=== PATIENT | female | born 1945 | race Caucasian/White ===

== ENCOUNTER 2016-08-11 13:41 | Observation (INO) | payer OTHER ==
[~2016-08-11] VITALS: Ht 152.4 cm; Wt 83.5 kg
[2016-08-11] VITALS (7 sets, daily range): BP systolic 122–153; BP diastolic 60–93; PULSE 100–115; RESP 18–22; TEMP 96.5–98.2; O2SAT 94–97
[~2016-08-11 13:41] MED LIST: ASPI325T PO; NITR-29 PO; OXYC5 PO; PRED20 PO
[2016-08-11] MEDS ORDERED: methylPREDNISolone SOD SUCC 125 MG/2 ML VIAL IVP ONE (13:45)
[2016-08-11] MEDS ORDERED: SODIUM CHLORIDE 0.9% FLUSH 10 ML FLUSH IVF PRN (13:45)
[2016-08-11] MEDS ORDERED: ASPI325T PO (13:50)
[2016-08-11] MEDS: RESP: ALBUTEROL 2.5 MG/IPRATROPIUM 0.5 MG NEB (SCH) INH ×3 (13:56→14:20)
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
[2016-08-11 14:05] LABS: BASOPHIL # 0.1 TH/MM3 (0-0.2); BASOPHIL % 0.8 % (0.0-2.0); EOSINOPHIL # 0.8 TH/MM3 (0-0.4); EOSINOPHIL % 7.3 % (0.0-4.0); LYMPH % 26.9 % (9.0-44.0); LYMPHOCYTE # 2.9 TH/MM3 (1.0-4.8); MEAN CELL VOLUME 88.4 FL (80.0-100.0); MEAN CORPUSCULAR HEMOGLOBIN 29.6 PG (27.0-34.0); MEAN CORPUSCULAR HGB CONC 33.5 % (32.0-36.0); MONO % 8.9 % (0.0-8.0); NEUT % 56.1 % (16.0-70.0); PLATELET COUNT 354 TH/MM3 (150-450); RED BLOOD COUNT 4.52 MIL/MM3 (4.00-5.30); RED CELL DISTRIBUTION WIDTH 12.6 % (11.6-17.2); WHITE BLOOD COUNT 10.8 TH/MM3 (4.0-11.0)
[2016-08-11 14:07] LABS: HEMO FLAGS DIFF FINAL
[2016-08-11 14:14] LABS: CHLORIDE 103 MEQ/L (98-107); SODIUM (NA) 138 MEQ/L (136-145)
[2016-08-11 14:18] LABS: ANION GAP 6 MEQ/L (5-15); BICARBONATE 28.8 MEQ/L (21.0-32.0)
[2016-08-11 14:19] LABS: BLOOD UREA NITROGEN 17 MG/DL (7-18)
[2016-08-11 14:22] LABS: ALT (GPT) 28 U/L (10-53); AST (GOT) 24 U/L (15-37); GLOMERULAR FILTRATION RATE 64 ML/MIN (>89)
[2016-08-11 14:23] LABS: TOTAL BILIRUBIN ADULT 0.2 MG/DL (0.2-1.0)
[2016-08-11 14:24] LABS: ALKALINE PHOSPHATASE 108 U/L (45-117)
[2016-08-11 14:28] LABS: POTASSIUM 4.4 MEQ/L (3.5-5.1)
--- NOTE | 2016-08-11 14:31 | RADHPO ---
EXAM DATE/TIME: 08/11/2016 13:49 [facility] COMPARISON: CHEST SINGLE AP, October 23, 2014, 14:53. INDICATIONS : Cough, congestion, and shortness of breath. MEDICAL HISTORY : None. SURGICAL HISTORY : None. ENCOUNTER: Initial ACUITY: 3 weeks PAIN SCORE: 0/10 LOCATION: Bilateral chest FINDINGS: A single view of the chest demonstrates the lungs to be symmetrically aerated without evidence of mas s, infiltrate or effusion. Stable granulomatous calcifications in the right lung. The cardiomediasti nal contours are unremarkable. Osseous structures are intact with some degenerative spurring of the dorsal spine. CONCLUSION: 1. Stable granulomatous calcifications in the right lung. 2. No acute infiltrate or effusion. Mahesh Solomon MD on August 11, 2016 at 14:28 Board Certified Radiologist. This report was verified electronically.
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
[2016-08-11] MEDS ORDERED: MAGNESIUM HYDROXIDE SUSP 30 ML CUP PO PRN (16:15)
[2016-08-11] MEDS ORDERED: BISACODYL 10 MG SUPP RECTAL PRN (16:15)
[2016-08-11] MEDS ORDERED: NALOXONE HCL 0.4 MG/ML AMP IV PRN (16:15)
[2016-08-11] MEDS ORDERED: SODIUM CHLORIDE 0.9% FLUSH 10 ML FLUSH IV FLUSH PRN (16:15)
[2016-08-11] MEDS ORDERED: LACTULOSE SYRUP 20 GM/30 ML CUP PO PRN (16:15)
[2016-08-11] MEDS ORDERED: ONDANSETRON HCL 4 MG/2 ML VIAL IVP PRN (16:15)
[2016-08-11] MEDS ORDERED: SENNOSIDES 8.6 MG TAB PO PRN (16:15)
[2016-08-11] MEDS ORDERED: RESP: ALBUTEROL 2.5 MG/3 ML NEB (PRN) INH (16:30)
[2016-08-11] MEDS: ENOXAPARIN SODIUM 40 MG/0.4 ML SYRINGE SQ SCH (17:00)
[2016-08-11] MEDS: AZITHROMYCIN 250 MG TAB PO SCH (17:44)
[2016-08-11] MEDS: RESP: ALBUTEROL 2.5 MG/IPRATROPIUM 0.5 MG NEB (SCH) NEB (22:25)
[2016-08-11] MEDS: SODIUM CHLORIDE 0.9% FLUSH 10 ML FLUSH IV FLUSH SCH (23:35)
[2016-08-11] MEDS: DOCUSATE SODIUM 50 MG/SENNA 8.6 MG TAB PO SCH (23:35)
[2016-08-11] MEDS: predniSONE 20 MG TAB PO SCH (23:35)
[2016-08-12] VITALS (7 sets, daily range): BP systolic 104–136; BP diastolic 57–76; PULSE 102–111; RESP 20–22; TEMP 97.2–97.5; O2SAT 92–97
[2016-08-12] MEDS ORDERED: BENZOCAINE-MENTHOL (SUGAR FREE) 15 MG-3.6 MG LOZENGE BUCCAL ONE (01:00)
[2016-08-12] MEDS: RESP: ALBUTEROL 2.5 MG/IPRATROPIUM 0.5 MG NEB (SCH) NEB ×5 (03:07→21:18)
[2016-08-12 06:36] LABS: AUTOMATED NEUTROPHIL # 15.6 TH/MM3 (1.8-7.7); BASOPHIL # 0.4 TH/MM3 (0-0.2); HEMATOCRIT 38.2 % (35.0-46.0); LYMPH % 13.1 % (9.0-44.0); LYMPHOCYTE # 2.5 TH/MM3 (1.0-4.8); MEAN CORPUSCULAR HEMOGLOBIN 29.9 PG (27.0-34.0); MEAN CORPUSCULAR HGB CONC 33.6 % (32.0-36.0); MONO % 2.9 % (0.0-8.0); PLATELET COUNT 348 TH/MM3 (150-450); RED BLOOD COUNT 4.29 MIL/MM3 (4.00-5.30); RED CELL DISTRIBUTION WIDTH 13.1 % (11.6-17.2); WHITE BLOOD COUNT 19.1 TH/MM3 (4.0-11.0)
[2016-08-12 06:38] LABS: POTASSIUM 4.3 MEQ/L (3.5-5.1)
[2016-08-12 06:42] LABS: BICARBONATE 25.1 MEQ/L (21.0-32.0)
[2016-08-12 06:47] LABS: HEMO FLAGS AUTO DIFF
[2016-08-12 07:09] LABS: SCAN/DIFF AUTO DIFF CONFIRMED
[2016-08-12] MEDS: SODIUM CHLORIDE 0.9% FLUSH 10 ML FLUSH IV FLUSH SCH ×2 (09:00→22:08)
[2016-08-12] MEDS: DOCUSATE SODIUM 50 MG/SENNA 8.6 MG TAB PO SCH ×2 (09:17→22:08)
[2016-08-12] MEDS: AZITHROMYCIN 250 MG TAB PO SCH (09:17)
[2016-08-12] MEDS: predniSONE 20 MG TAB PO SCH (09:17)
--- NOTE | 2016-08-12 09:35 | HHI.PR ---
Subjective Remarks still with diffuse wheezing and cough. has thick sputum. no fever. Objective Vitals Vital Signs Date Time Temp Pulse Resp B/P Pulse Ox O2 Delivery O2 Flow Rate FiO2 08/12/16 08:00 97.4 102 22 133/76 94 08/12/16 00:00 97.5 108 20 104/59 97 08/11/16 20:00 96.5 112 20 126/77 97 08/11/16 20:00 94 21 08/11/16 16:59 98.2 115 22 137/76 94 08/11/16 16:32 108 20 122/60 96 Nasal Cannula 2 08/11/16 15:12 115 20 127/62 95 Nasal Cannula 2 08/11/16 14:35 20 97 Room Air 08/11/16 14:35 97 Room Air 2 08/11/16 14:34 20 97 Nasal Cannula 2 08/11/16 14:13 106 18 153/66 97 Room Air 08/11/16 13:45 97.6 100 18 141/93 96 I/O 08/11/16 08/11/16 08/11/16 08/12/16 08/12/16 08/12/16 07:00 15:00 23:00 07:00 15:00 23:00 Intake Total 240 ml Balance 240 ml Intake Oral 240 ml # Voids 3 # Bowel Movements 1 Result Diagram: 08/12/16 0600 08/12/16 0600 Imaging Last Impressions Chest X-Ray 08/11/16 1343 Signed Impressions: Service Date/Time: Thursday, August 11, 2016 13:49 - CONCLUSION: 1. Stable granulomatous calcifications in the right lung. 2. No acute infiltrate or effusion. Mahesh Solomon MD Objective Remarks GENERAL: This is a well-nourished, well-developed patient, in no apparent distress. CARDIOVASCULAR: Regular rate and regular rhythm without murmurs, gallops, or rubs. RESPIRATORY: bilateral wheezing. GASTROINTESTINAL: Abdomen soft, non-tender, nondistended. Normal, active bowel sounds MUSCULOSKELETAL: Extremities without clubbing, cyanosis, or edema. NEURO: Alert & Oriented x4 to person, place, time, situation. Moves all ext x4 Procedures none Medications and IVs Current Medications Sodium Chloride (NS Flush) 2 ml UNSCH PRN IVF FLUSH AFTER USING IV ACCESS Last administered on 08/11/16 14:11; Start 08/11/16 at 13:45; Stop 08/11/16 at 16:22 ; Status DC Methylprednisolone Sodium Succinate (SoluMEDROL INJ) 125 mg ONCE ONCE IVP Last administered on 08/11/16 14:11; Start 08/11/16 at 13:45; Stop 08/11/16 at 13:51; Status DC Albuterol/ Ipratropium (Duoneb Neb) 1 ampule Q15M INH Last administered on 08/11 14:20; Start 08/11/16 at 13:45; Stop 08/11/16 at 14:16; Status DC Sodium Chloride (NS Flush) 2 ml UNSCH PRN IV FLUSH FLUSH AFTER USING IV ACCESS Last administered on 08/11/16 17:44; Start 08/11/16 at 16:15 Sodium Chloride (NS Flush) 2 ml BID IV FLUSH Last administered on 08/11/16 23: 35; Start 08/11/16 at 21:00 Ondansetron HCl (Zofran Inj) 4 mg Q6H PRN IVP NAUSEA OR VOMITING; Start at 16:15 Enoxaparin Sodium (Lovenox Inj) 40 mg Q24H SQ ; Start 08/11/16 at 17:00 Naloxone HCl (Narcan Inj) 0.4 mg UNSCH PRN IV SEE LABEL COMMENTS; Start at 16:15 Senna/Docusate Sodium (Alma-Colace) 1 tab BID PO Last administered on 09:17; Start 08/11/16 at 21:00 Magnesium Hydroxide (Milk Of Magnesia Liq) 30 ml Q12H PRN PO MILD - MODERATE CONSTIPATION; Start 08/11/16 at 16:15 Sennosides (Senokot) 17.2 mg Q12H PRN PO MODERATE - SEVERE CONSTIPATION; Start 08/11/16 at 16:15 Bisacodyl (Dulcolax Supp) 10 mg DAILY PRN RECTAL SEVERE CONSITIPATION; Start at 16:15 Lactulose (Lactulose Liq) 30 ml DAILY PRN PO SEVERE CONSITIPATION; Start at 16:15 Azithromycin (Zithromax) 250 mg DAILY PO Last administered on 08/12/16 09:17; Start 08/11/16 at 16:30; Stop 08/26/16 at 16:29 Albuterol Sulfate (Albuterol Neb) 2.5 mg Q4HR NEB PRN INH Wheezing Last administered on 08/11/16 20:02; Start 08/11/16 at 16:30 Albuterol/ Ipratropium (Duoneb Neb) 1 ampule Q6HR NEB NEB Last administered on 08/12/16 05:43; Start 08/11/16 at 22:00 Prednisone (Deltasone) 20 mg BID PO Last administered on 08/12/16 09:17; Start 08/11/16 at 21:00; Stop 08/15/16 at 21:00 Benzocaine/Menthol (Cepacol Extra Jam (Sugar Free)) 1 lozenge ONCE ONCE BUCCAL Last administered on 08/12/16 02:00; Start 08/12/16 at 01:00; Stop 08/12/16 at 01:03; Status DC A/P Assessment and Plan A/P Reactive airway disease with wheezing for 4 days, treated outpatient with Augmentin Chest xray shows Stable granulomatous calcifications in the right lung. No acute infiltrate or effusion. -Azithromycin PO for 14 days -will switch to IV steroids -Tessalon for cough -Duonebs scheduled and as needed -O2 as needed leukocytosis- due to steroids- afebrile- will monitor DVT Prophylaxis: Kathi Mayers MD August 12, 2016 09:35
[2016-08-12] MEDS: methylPREDNISolone SOD SUCC 40 MG/1 ML VIAL IV PUSH SCH ×2 (14:35→22:07)
[2016-08-12] MEDS: BENZONATATE 100 MG CAP PO PRN ×2 (14:35→22:07)
--- NOTE | 2016-08-12 17:34 | EKG ---
Date Performed: 08/11/2016 Time Performed: 14:17:12 PTAGE: 71 years EKG: Sinus tachycardia Normal ECG except for rate PREVIOUS TRACING : 05/13/2015 17.38 Compared to prior tracing no significant change DOCTOR: Herson Haines Interpretating Date/Time 08/12/2016 17:33:20
[2016-08-12] MEDS: ENOXAPARIN SODIUM 40 MG/0.4 ML SYRINGE SQ SCH (18:05)
[2016-08-13] VITALS (8 sets, daily range): BP systolic 106–143; BP diastolic 71–89; PULSE 73–107; RESP 18–20; TEMP 96–97.6; O2SAT 93–99
[2016-08-13] MEDS: RESP: ALBUTEROL 2.5 MG/IPRATROPIUM 0.5 MG NEB (SCH) NEB ×4 (03:55→20:32)
[2016-08-13] MEDS: methylPREDNISolone SOD SUCC 40 MG/1 ML VIAL IV PUSH SCH ×2 (06:04→21:39)
[2016-08-13 06:46] LABS: AUTOMATED NEUTROPHIL # 20.8 TH/MM3 (1.8-7.7); BASOPHIL # 0.2 TH/MM3 (0-0.2); BASOPHIL % 0.7 % (0.0-2.0); LYMPH % 10.1 % (9.0-44.0); LYMPHOCYTE # 2.4 TH/MM3 (1.0-4.8); MEAN CELL VOLUME 88.6 FL (80.0-100.0); MEAN CORPUSCULAR HEMOGLOBIN 29.5 PG (27.0-34.0); MEAN CORPUSCULAR HGB CONC 33.3 % (32.0-36.0); MONO % 1.4 % (0.0-8.0); NEUT % 87.8 % (16.0-70.0); PLATELET COUNT 397 TH/MM3 (150-450); RED BLOOD COUNT 4.63 MIL/MM3 (4.00-5.30); RED CELL DISTRIBUTION WIDTH 13.3 % (11.6-17.2); WHITE BLOOD COUNT 23.7 TH/MM3 (4.0-11.0)
[2016-08-13 06:49] LABS: HEMO FLAGS AUTO DIFF
[2016-08-13 07:18] LABS: SCAN/DIFF AUTO DIFF CONFIRMED
[2016-08-13] MEDS: AZITHROMYCIN 250 MG TAB PO SCH (09:15)
[2016-08-13] MEDS: SODIUM CHLORIDE 0.9% FLUSH 10 ML FLUSH IV FLUSH SCH ×2 (09:15→21:39)
[2016-08-13] MEDS: DOCUSATE SODIUM 50 MG/SENNA 8.6 MG TAB PO SCH ×2 (09:15→21:00)
--- NOTE | 2016-08-13 09:21 | HHI.PR ---
Subjective Remarks looks more comfortable today. sob, cough and wheezing is better. no fever or new complaints. Objective Vitals Vital Signs Date Time Temp Pulse Resp B/P Pulse Ox O2 Delivery O2 Flow Rate FiO2 08/13/16 08:17 94 21 08/13/16 08:00 96.0 98 20 143/80 93 08/13/16 04:00 96.7 100 20 136/80 93 08/13/16 00:00 96.9 107 20 137/89 93 08/12/16 21:19 96 08/12/16 20:00 97.3 111 20 136/73 94 08/12/16 16:00 97.2 107 22 113/57 93 08/12/16 12:00 97.2 106 20 128/68 93 08/12/16 09:26 92 21 I/O 08/12/16 08/12/16 08/12/16 08/13/16 08/13/16 08/13/16 07:00 15:00 23:00 07:00 15:00 23:00 Intake Total 240 ml 756 ml 180 ml 220 ml Balance 240 ml 756 ml 180 ml 220 ml Intake Oral 240 ml 750 ml 180 ml 220 ml IV Total 6 ml # Voids 3 4 4 6 # Bowel Movements 1 0 0 Result Diagram: 08/13/16 0510 08/12/16 0600 Imaging Last Impressions Chest X-Ray 08/11/16 1343 Signed Impressions: Service Date/Time: Thursday, August 11, 2016 13:49 - CONCLUSION: 1. Stable granulomatous calcifications in the right lung. 2. No acute infiltrate or effusion. Mahesh Solomon MD Objective Remarks GENERAL: This is a well-nourished, well-developed patient, in no apparent distress. CARDIOVASCULAR: Regular rate and regular rhythm without murmurs, gallops, or rubs. RESPIRATORY: bilateral wheezing has much improved. GASTROINTESTINAL: Abdomen soft, non-tender, nondistended. Normal, active bowel sounds MUSCULOSKELETAL: Extremities without clubbing, cyanosis, or edema. NEURO: Alert & Oriented x4 to person, place, time, situation. Moves all ext x4 Procedures none Medications and IVs Current Medications Sodium Chloride (NS Flush) 2 ml UNSCH PRN IVF FLUSH AFTER USING IV ACCESS Last administered on 08/11/16t 14:11; Start 08/11/16 at 13:45; Stop 08/11/16 at 16:22 ; Status DC Methylprednisolone Sodium Succinate (SoluMEDROL INJ) 125 mg ONCE ONCE IVP Last administered on 08/11/16 14:11; Start 08/11/16 at 13:45; Stop 08/11/16 at 13:51; Status DC Albuterol/ Ipratropium (Duoneb Neb) 1 ampule Q15M INH Last administered on 08/11 14:20; Start 08/11/16 at 13:45; Stop 08/11/16 at 14:16; Status DC Sodium Chloride (NS Flush) 2 ml UNSCH PRN IV FLUSH FLUSH AFTER USING IV ACCESS Last administered on 08/11/16 17:44; Start 08/11/16 at 16:15 Sodium Chloride (NS Flush) 2 ml BID IV FLUSH Last administered on 08/12/16 22: 08; Start 08/11/16 at 21:00 Ondansetron HCl (Zofran Inj) 4 mg Q6H PRN IVP NAUSEA OR VOMITING; Start at 16:15 Enoxaparin Sodium (Lovenox Inj) 40 mg Q24H SQ Last administered on 08/12/16 18 :05; Start 08/11/16 at 17:00 Naloxone HCl (Narcan Inj) 0.4 mg UNSCH PRN IV SEE LABEL COMMENTS; Start at 16:15 Senna/Docusate Sodium (Alma-Colace) 1 tab BID PO Last administered on 22:08; Start 08/11/16 at 21:00 Magnesium Hydroxide (Milk Of Magnesia Liq) 30 ml Q12H PRN PO MILD - MODERATE CONSTIPATION; Start 08/11/16 at 16:15 Sennosides (Senokot) 17.2 mg Q12H PRN PO MODERATE - SEVERE CONSTIPATION; Start 08/11/16 at 16:15 Bisacodyl (Dulcolax Supp) 10 mg DAILY PRN RECTAL SEVERE CONSITIPATION; Start at 16:15 Lactulose (Lactulose Liq) 30 ml DAILY PRN PO SEVERE CONSITIPATION; Start at 16:15 Azithromycin (Zithromax) 250 mg DAILY PO Last administered on 08/12/16 09:17; Start 08/11/16 at 16:30; Stop 08/26/16 at 16:29 Albuterol Sulfate (Albuterol Neb) 2.5 mg Q4HR NEB PRN INH Wheezing Last administered on 08/11/16 20:02; Start 08/11/16 at 16:30 Albuterol/ Ipratropium (Duoneb Neb) 1 ampule Q6HR NEB NEB Last administered on 08/13/16 08:14; Start 08/11/16 at 22:00 Prednisone (Deltasone) 20 mg BID PO Last administered on 08/12/16 09:17; Start 08/11/16 at 21:00; Stop 08/12/16 at 09:37; Status DC Benzocaine/Menthol (Cepacol Extra Jam (Sugar Free)) 1 lozenge ONCE ONCE BUCCAL Last administered on 08/12/16 02:00; Start 08/12/16 at 01:00; Stop 08/12/16 at 01:03; Status DC Methylprednisolone Sodium Succinate (SoluMEDROL INJ) 40 mg Q8HR IV PUSH Last administered on 08/13/16 06:04; Start 08/12/16 at 14:00 Benzonatate (Tessalon) 100 mg TID PRN PO COUGH Last administered on 08/12/16 22:07; Start 08/12/16 at 09:45 A/P Assessment and Plan A/P Reactive airway disease with wheezing for 4 days, treated outpatient with Augmentin- now improving Chest xray shows Stable granulomatous calcifications in the right lung. No acute infiltrate or effusion. -continue Azithromycin -taper down IV steroids -Tessalon for cough -Duonebs scheduled and as needed -O2 as needed leukocytosis- due to steroids- afebrile- will monitor DVT Prophylaxis: Lovenox Discharge Planning dc home in am if stable. Kathi Rose MD August 13, 2016 09:21
[2016-08-13] MEDS ORDERED: VENTAER INH (09:24)
[2016-08-13] MEDS ORDERED: AZIT250T3 PO (09:24)
[2016-08-13] MEDS ORDERED: PRED5TAB PO (09:24)
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
[2016-08-13] MEDS: ENOXAPARIN SODIUM 40 MG/0.4 ML SYRINGE SQ SCH (18:06)
[2016-08-14 00:19] VITALS: BP 186/82; PULSE 120; RESP 22; TEMP 97.9; O2SAT 93
[2016-08-14] MEDS: RESP: ALBUTEROL 2.5 MG/IPRATROPIUM 0.5 MG NEB (SCH) NEB ×2 (03:39→10:07)
[2016-08-14 07:23] LABS: AUTOMATED NEUTROPHIL # 13.5 TH/MM3 (1.8-7.7); BASOPHIL # 0.1 TH/MM3 (0-0.2); BASOPHIL % 0.6 % (0.0-2.0); EOSINOPHIL % 0.2 % (0.0-4.0); HEMATOCRIT 39.9 % (35.0-46.0); MEAN CELL VOLUME 89.9 FL (80.0-100.0); MEAN CORPUSCULAR HEMOGLOBIN 29.4 PG (27.0-34.0); MEAN CORPUSCULAR HGB CONC 32.7 % (32.0-36.0); MONO % 4.4 % (0.0-8.0); NEUT % 77.8 % (16.0-70.0); PLATELET COUNT 388 TH/MM3 (150-450); RED BLOOD COUNT 4.44 MIL/MM3 (4.00-5.30); RED CELL DISTRIBUTION WIDTH 13.8 % (11.6-17.2); WHITE BLOOD COUNT 17.4 TH/MM3 (4.0-11.0)
[2016-08-14 07:35] LABS: HEMO FLAGS DIFF FINAL
--- NOTE | 2016-08-14 07:46 | HHI.PR ---
Subjective Remarks overall doing fine. has minimal wheezing. in no distress. wants to go home. Objective Vitals Vital Signs Date Time Temp Pulse Resp B/P Pulse Ox O2 Delivery O2 Flow Rate FiO2 08/14/16 00:19 97.9 120 22 186/82 93 08/13/16 20:57 97.6 95 18 123/74 94 08/13/16 20:32 97 08/13/16 16:00 96.8 93 20 122/75 95 08/13/16 12:00 97.2 73 20 106/71 99 08/13/16 08:17 94 21 08/13/16 08:00 96.0 98 20 143/80 93 I/O 08/13/16 08/13/16 08/13/16 08/14/16 08/14/16 08/14/16 07:00 15:00 23:00 07:00 15:00 23:00 Intake Total 220 ml 800 ml Balance 220 ml 800 ml Intake Oral 220 ml 800 ml # Voids 6 5 1 1 # Bowel Movements 0 1 Result Diagram: 08/14/16 0559 08/12/16 0600 Imaging Last Impressions Chest X-Ray 08/11/16 1343 Signed Impressions: Service Date/Time: Thursday, August 11, 2016 13:49 - CONCLUSION: 1. Stable granulomatous calcifications in the right lung. 2. No acute infiltrate or effusion. Mahesh Solomon MD Objective Remarks GENERAL: This is a well-nourished, well-developed patient, in no apparent distress. CARDIOVASCULAR: Regular rate and regular rhythm without murmurs, gallops, or rubs. RESPIRATORY:minimal bilateral wheezing GASTROINTESTINAL: Abdomen soft, non-tender, nondistended. Normal, active bowel sounds MUSCULOSKELETAL: Extremities without clubbing, cyanosis, or edema. NEURO: Alert & Oriented x4 to person, place, time, situation. Moves all ext x4 Procedures none Medications and IVs Current Medications Sodium Chloride (NS Flush) 2 ml UNSCH PRN IVF FLUSH AFTER USING IV ACCESS Last administered on 08/11/16 14:11; Start 08/11/16 at 13:45; Stop 08/11/16 at 16:22 ; Status DC Methylprednisolone Sodium Succinate (SoluMEDROL INJ) 125 mg ONCE ONCE IVP Last administered on 08/11/16 14:11; Start 08/11/16 at 13:45; Stop 08/11/16 at 13:51; Status DC Albuterol/ Ipratropium (Duoneb Neb) 1 ampule Q15M INH Last administered on 08/11 14:20; Start 08/11/16 at 13:45; Stop 08/11/16 at 14:16; Status DC Sodium Chloride (NS Flush) 2 ml UNSCH PRN IV FLUSH FLUSH AFTER USING IV ACCESS Last administered on 08/11/16 17:44; Start 08/11/16 at 16:15 Sodium Chloride (NS Flush) 2 ml BID IV FLUSH Last administered on 08/13/16 21: 39; Start 08/11/16 at 21:00 Ondansetron HCl (Zofran Inj) 4 mg Q6H PRN IVP NAUSEA OR VOMITING; Start at 16:15 Enoxaparin Sodium (Lovenox Inj) 40 mg Q24H SQ Last administered on 08/13/16 18 :06; Start 08/11/16 at 17:00 Naloxone HCl (Narcan Inj) 0.4 mg UNSCH PRN IV SEE LABEL COMMENTS; Start at 16:15 Senna/Docusate Sodium (Alma-Colace) 1 tab BID PO Last administered on 09:15; Start 08/11/16 at 21:00 Magnesium Hydroxide (Milk Of Magnesia Liq) 30 ml Q12H PRN PO MILD - MODERATE CONSTIPATION; Start 08/11/16 at 16:15 Sennosides (Senokot) 17.2 mg Q12H PRN PO MODERATE - SEVERE CONSTIPATION; Start 08/11/16 at 16:15 Bisacodyl (Dulcolax Supp) 10 mg DAILY PRN RECTAL SEVERE CONSITIPATION; Start at 16:15 Lactulose (Lactulose Liq) 30 ml DAILY PRN PO SEVERE CONSITIPATION; Start at 16:15 Azithromycin (Zithromax) 250 mg DAILY PO Last administered on 08/13/16 09:15; Start 08/11/16 at 16:30; Stop 08/26/16 at 16:29 Albuterol Sulfate (Albuterol Neb) 2.5 mg Q4HR NEB PRN INH Wheezing Last administered on 08/11/16 20:02; Start 08/11/16 at 16:30 Albuterol/ Ipratropium (Duoneb Neb) 1 ampule Q6HR NEB NEB Last administered on 08/14/16 03:39; Start 08/11/16 at 22:00 Prednisone (Deltasone) 20 mg BID PO Last administered on 08/12/16 09:17; Start 08/11/16 at 21:00; Stop 08/12/16 at 09:37; Status DC Benzocaine/Menthol (Cepacol Extra Jam (Sugar Free)) 1 lozenge ONCE ONCE BUCCAL Last administered on 08/12/16 02:00; Start 08/12/16 at 01:00; Stop 08/12/16 at 01:03; Status DC Methylprednisolone Sodium Succinate (SoluMEDROL INJ) 40 mg Q8HR IV PUSH Last administered on 08/13/16 06:04; Start 08/12/16 at 14:00; Stop 08/13/16 at 09:21 ; Status DC Benzonatate (Tessalon) 100 mg TID PRN PO COUGH Last administered on 08/12/16 22:07; Start 08/12/16 at 09:45 Methylprednisolone Sodium Succinate (SoluMEDROL INJ) 20 mg Q12HR IV PUSH Last administered on 08/13/16 21:39; Start 08/13/16 at 21:00 A/P Assessment and Plan A/P Reactive airway disease with wheezing treated outpatient with Augmentin- now improving Chest xray shows Stable granulomatous calcifications in the right lung. No acute infiltrate or effusion. -continue Azithromycin -switch to po prednisone -Tessalon for cough -Duonebs scheduled and as needed -O2 as needed leukocytosis- due to steroids-improved afebrile- DVT Prophylaxis: Lovenox Discharge Planning dc home today. see med list. f/u; pcp. Kathi Rose MD August 14, 2016 07:45
--- NOTE | 2016-08-14 07:46 | HHI.DS ---
Discharge Summary Admission Date August 11, 2016 at 15:32 Discharge Date: August 14, 2016 Admitting Diagnosis wheezing (1) Reactive airway disease with wheezing ICD Code: J45.909 Diagnosis: Principal Procedures none Brief History - From Admission Written by ANIBAL Cobos acting as scribe for Dr. Morales] on 08/11/16 at 15 :42. 71 y/o female with a medical history of arthritis presented to the ED with complaints of wheezing for 4 days and coughing for the last 3 weeks. She was treated outpatient for Bronchitis 2 weeks ago with Augmentin. She states at first she felt better but then began to cough again, no sputum production. She is unsure if she was having fevers because she take ibuprofen around the clock for arthritis. Denies any chest pain. CBC/BMP: 08/14/16 0559 08/12/16 0600 Significant Findings Laboratory Tests Test 08/11/16 08/12/16 08/13/16 08/14/16 13:55 06:00 05:10 05:59 Monocytes (%) (Auto) 8.9 % (0.0-8.0) Eosinophils (%) (Auto) 7.3 % (0.0-4.0) Monocytes # (Auto) 1.0 TH/MM3 (0-0.9) Eosinophils # (Auto) 0.8 TH/MM3 (0-0.4) Estimat Glomerular Filtration 64 ML/MIN (>89) 49 ML/MIN (>89) Rate Albumin 3.2 GM/DL (3.4-5.0) White Blood Count 19.1 TH/MM3 23.7 TH/MM3 17.4 TH/MM3 (4.0-11.0) (4.0-11.0) (4.0-11.0) Neutrophils (%) (Auto) 82.0 % 87.8 % 77.8 % (16.0-70.0) (16.0-70.0) (16.0-70.0) Neutrophils # (Auto) 15.6 TH/MM3 20.8 TH/MM3 13.5 TH/MM3 (1.8-7.7) (1.8-7.7) (1.8-7.7) Basophils # (Auto) 0.4 TH/MM3 (0-0.2) Blood Urea Nitrogen 24 MG/DL (7-18) Creatinine 1.10 MG/DL (0.50-1.00) Random Glucose 152 MG/DL (74-106) Imaging Last Impressions Chest X-Ray 08/11/16 1343 Signed Impressions: Service Date/Time: Thursday, August 11, 2016 13:49 - CONCLUSION: 1. Stable granulomatous calcifications in the right lung. 2. No acute infiltrate or effusion. Mahesh Solomon MD PE at Discharge GENERAL: This is a well-nourished, well-developed patient, in no apparent distress. CARDIOVASCULAR: Regular rate and regular rhythm without murmurs, gallops, or rubs. RESPIRATORY:minimal bilateral wheezing GASTROINTESTINAL: Abdomen soft, non-tender, nondistended. Normal, active bowel sounds MUSCULOSKELETAL: Extremities without clubbing, cyanosis, or edema. NEURO: Alert & Oriented x4 to person, place, time, situation. Moves all ext x4 Hospital Course Reactive airway disease with wheezing treated outpatient with Augmentin- now improving Chest xray shows Stable granulomatous calcifications in the right lung. No acute infiltrate or effusion. -continue Azithromycin -switch to po prednisone -Tessalon for cough -Duonebs scheduled and as needed -O2 as needed leukocytosis- due to steroids-improved afebrile- DVT Prophylaxis: Lovenox Pt Condition on Discharge: Good Discharge Disposition: Discharge Home Discharge Time: <= 30 minutes Discharge Instructions DIET: Follow Instructions for: Heart Healthy Diet Activities you can perform: Regular-No Restrictions Follow up Referrals: PCP Follow-up New Medications: Albuterol 18 GM Inh (Ventolin Hfa 18 GM Inh) 90 Mcg/Act Aer 1 PUFF INH Q4H PRN SHORTNESS OF BREATH #1 Ref 0 INHALER Prednisone (Prednisone) 5 Mg Tab 5 MG PO DIRECTED 40 mg po daily for two days then 30 mg po daily for two days then 20 mg po daily for two days then 10 mg po daily for two days then 5 mg po daily for two days then stop. Shortness of Breath Days 10 Ref 0 TAB Azithromycin (Azithromycin) 250 Mg Tab 250 MG PO DAILY bronchitis Days 5 Ref 0 TAB Benzonatate (Tessalon Perles) 100 Mg Cap 100 MG PO TID PRN COUGH #15 Ref 0 CAP Continued Medications: Aspirin (Aspirin) 325 Mg Tab 325 MG PO DAILY Blood Clot Prevention #30 Ref 0 TAB Kathi Rose MD August 14, 2016 07:46
[2016-08-14 08:00] VITALS: BP 134/73; PULSE 106; RESP 22; TEMP 97.2; O2SAT 97
[2016-08-14] MEDS: AZITHROMYCIN 250 MG TAB PO SCH (09:13)
[2016-08-14] MEDS: DOCUSATE SODIUM 50 MG/SENNA 8.6 MG TAB PO SCH (09:13)
[2016-08-14] MEDS: methylPREDNISolone SOD SUCC 40 MG/1 ML VIAL IV PUSH SCH (09:14)
[2016-08-14] MEDS: SODIUM CHLORIDE 0.9% FLUSH 10 ML FLUSH IV FLUSH SCH (09:14)
[2016-08-14] MEDS: BENZONATATE 100 MG CAP PO PRN (09:16)
[2016-08-14] MEDS ORDERED: BENZ100 PO (09:37)
[2016-08-14 10:09] VITALS: O2SAT 94
== END 2016-08-14 13:30 | disposition home or self-care (01) ==
LOC: PHED 13:41 → PHEDA 15:32 → PH3A 16:47
PROVIDERS: ADMIT Internal Medicine; ATTEND Internal Medicine
DX: J45.909 Unspecified asthma, uncomplicated (principal); Z79.01 Long term (current) use of anticoagulants; M19.90 Unspecified osteoarthritis, unspecified site; E11.9 Type 2 diabetes mellitus without complications; T38.0X5A Adverse effect of glucocorticoids and synthetic analogues, initial encounter; R00.0 Tachycardia, unspecified
CPT/HCPCS: 71010; 76937; 80048; 80053; 85025; 93005; 94640; 94664; 96361; 96374; 96375; 99285; G0378; J1650; J2920; J2930; J7512; J7613